=== PATIENT | female | born 1945 | race Caucasian/White ===

== ENCOUNTER 2017-01-18 07:03 | Day surgery (SDC) | payer OTHER ==
[2017-01-18] MEDS ORDERED: LIDOCAINE 1% 5 ML SDV ONE (07:47)
[2017-01-18] MEDS ORDERED: fentaNYL 100 MCG/2 ML INJ ONE (08:00)
[2017-01-18] MEDS ORDERED: PROPOFOL 200 MG/20 ML VIAL ONE (08:00)
[2017-01-18] MEDS ORDERED: CEFAZOLIN 2 GM/DEXTROSE/100 ML BAG IV ONE (08:14)
[2017-01-18] MEDS ORDERED: ceFAZolin 2 GM/DEXTROSE 100 ML IV ONE (08:30)
[2017-01-18] MEDS ORDERED: MIDAZOLAM 2 MG/2 ML VIAL ONE (08:35)
[2017-01-18] MEDS ORDERED: LIDO/BUPIVA/morphINE 15ML SYR IU ONE (09:00)
[2017-01-18] MEDS ORDERED: LIDO/BUPIVA/NS 60ML SYR IU ONE (09:00)
[2017-01-18] MEDS ORDERED: LIDO/BUPIVA 10ML SYR IU ONE (09:00)
[2017-01-18] MEDS ORDERED: ONDANSETRON 4 MG/2 ML VIAL ONE (09:13)
[2017-01-18] MEDS ORDERED: DEXAMETHASONE 4 MG/ML VIAL ONE (09:13)
--- NOTE | 2017-01-18 10:06 | GOP ---
DATE OF OPERATION: 01/18/2017 SURGEON: Joe Borden MD CONSTRUCTION DRIVER: Dyan Roman ANESTHESIA: General. PREOPERATIVE DIAGNOSIS: Left knee medial meniscal tear and medial compartment osteoarthritis. POSTOPERATIVE DIAGNOSIS: Left knee medial meniscal tear and medial compartment osteoarthritis. PROCEDURE PERFORMED: Arthroscopic partial medial meniscectomy and debridement of the medial condyle and plateau, CPT code 48342. FINDINGS: 1. Normal patella. 2. Normal trochlea. 3. Medial femoral condyle with extensive grade 4 changes on the far medial aspect of the medial condyle. 4. Grade 4 changes over the medial half of the medial tibial plateau. 5. A complex tear of the posterior medial meniscus. 6. Intact ACL. 7. Normal lateral femoral condyle. 8. Normal lateral tibial plateau. 9. Normal lateral meniscus. PATIENT POSITION: Supine. TOURNIQUET TIME: 0 minutes. INDICATIONS: Patient is a 71-year-old with persistent medial joint pain. Imaging and evaluation were consistent with a medial meniscal tear as well as medial compartment cartilage wear. The patient had options discussed. She desired to go ahead with an arthroscopy, arthroscopic debridement, understanding the potential that she may not get better, she may still have pain due to arthritis. Nevertheless, she desired to go ahead with the arthroscopy. She also understood the potential risks and benefits, including but not limited to, bleeding, infection, persistent pain, stiffness, and anesthetic risks. DESCRIPTION OF PROCEDURE: The patient was taken to the operating room. After undergoing successful general anesthesia, the left lower extremity was prepped and draped in the usual sterile manner. Anatomic landmarks were identified. The anterolateral and anteromedial portal sites were injected with 0.25% Marcaine and 1% lidocaine. The knee was injected with the same. Anterolateral portal was made. The arthroscope placed in the joint. With the arthroscope in the joint, anteromedial portal was made. The probe was placed and the findings are described above. The degenerative changes were extensive. There were some loose cartilage edges that were debrided. The meniscus tear was complex in nature, and this was debrided back to stable base, although the meniscus was degenerative at its base. Following the debridement of the meniscus, debridement of the joint, the knee was then thoroughly irrigated and small debris was flushed out. Portal sites closed using 3-0 nylon suture. The knee was injected with 0.25%, 1% Marcaine and 5 mg of Duramorph. The patient had a sterile dressing. The patient had a compressive dressing. Patient was awakened and taken to recovery room in stable condition. Sponge, instrument and needle counts were correct. PLAN: The patient will undergo physical therapy with emphasis on range of motion and strengthening. Will be a candidate for viscosupplementation or platelet rich plasma in the future. Also, a candidate for unicompartmental knee. Also, car unloader helper brace. /[id number]/MODL MTDD
== END 2017-01-18 11:05 | disposition home or self-care (01) ==
LOC: FSGY 07:03
PROVIDERS: ATTEND Orthopaedic Surgery Sports Medicine
PROC: 0SBD4ZZ Excision of Left Knee Joint, Percutaneous Endoscopic Approach (ICD-10-PCS; principal; 2017-01-18 08:30)
DX: M23.222 Derangement of posterior horn of medial meniscus due to old tear or injury, left knee (principal); M17.12 Unilateral primary osteoarthritis, left knee
CPT/HCPCS: J0171; J0690; J1100; J2250; J2274; J2405; J2704; J3010

== ENCOUNTER → 2017-06-20 | Outpatient (CLI) | payer OTHER | LOC: FIMAGING 08:15 | PROVIDERS: ATTEND Internal Medicine | DX: R19.00 Intra-abdominal and pelvic swelling, mass and lump, unspecified site (principal) ==

== ENCOUNTER → 2017-09-05 | Outpatient (CLI) | payer OTHER | LOC: BMCIMAGING 15:16 | PROVIDERS: ATTEND Internal Medicine | DX: Z12.31 Encounter for screening mammogram for malignant neoplasm of breast (principal) | CPT/HCPCS: G0202 ==

== ENCOUNTER → 2017-09-27 | Outpatient (CLI) | payer OTHER | LOC: BMCIMAGING 13:48 | PROVIDERS: ATTEND Podiatrist Foot & Ankle Surgery | DX: Z13.828 Encounter for screening for other musculoskeletal disorder (principal); M20.41 Other hammer toe(s) (acquired), right foot; M20.42 Other hammer toe(s) (acquired), left foot; M77.32 Calcaneal spur, left foot; M77.31 Calcaneal spur, right foot ==

== ENCOUNTER → 2018-08-28 | Outpatient (CLI) | payer OTHER | LOC: FIMAGING 15:47 | PROVIDERS: ATTEND Orthopaedic Surgery | DX: Z01.818 Encounter for other preprocedural examination (principal); M17.12 Unilateral primary osteoarthritis, left knee ==

== ENCOUNTER → 2018-09-09 | Outpatient (CLI) | payer OTHER | LOC: BMCIMAGING 13:21 | PROVIDERS: ATTEND Internal Medicine | DX: Z12.31 Encounter for screening mammogram for malignant neoplasm of breast (principal) ==

== ENCOUNTER 2018-09-20 06:04 | Observation (INO) | payer OTHER ==
[~2018-09-20 06:04] MED LIST: ROPIVACAINE 0.2% 80 MG, EPINEPHrine 0.2 MG, KETOROLAC TROMETHAMINE 30 MG in SYRINGE 0 ML IU ONE; TRANEXAMIC ACID 3,000 MG in NS (SYRINGE) 50 ML IRR ONE
--- NOTE | 2018-09-20 06:12 | PDHPUP ---
History & Physical Update H&P update statement: This history and physical update is based on an assessment of the patient which was completed after admission or registration (within 24 hours), but prior to the surgery/procedure. H&P update: H&P reviewed & patient examined, no change in patient's condition since H&P completed
[2018-09-20] MEDS ORDERED: ceFAZolin 2 GM/DEXTROSE 100 ML IV ONE (06:18)
[2018-09-20] MEDS ORDERED: DEXAMETHASONE 4 MG/ML VIAL IVP ONE (06:18)
[2018-09-20] MEDS ORDERED: ACETAMINOPHEN 325 MG TAB PO ONE (06:18)
[2018-09-20] MEDS ORDERED: FAMOTIDINE 20 MG TAB PO ONE (06:18)
[2018-09-20] MEDS ORDERED: LIDOCAINE 1% 2 ML INJ ID PRN (06:19)
[2018-09-20] MEDS ORDERED: LR 1,000 ML IV ONE (06:19)
[2018-09-20] MEDS ORDERED: VANCOMYCIN 1 GM VIAL ONE (06:36)
[2018-09-20] MEDS ORDERED: MIDAZOLAM 2 MG/2 ML VIAL ONE (07:02)
[2018-09-20] MEDS ORDERED: PROPOFOL/EMULSION 500 MG/50 ML BOTTLE IV ONE (07:02)
[2018-09-20] MEDS ORDERED: BUPIVACAINE/DEXTROSE 7.5MG/ML 2 ML SPINAL AMP SP ONE (07:02)
[2018-09-20] MEDS ORDERED: ROPIVACAINE HCL 150 MG/30 ML INJ ONE (07:33)
[2018-09-20] MEDS ORDERED: ALBUTEROL 3 ML DEYVIAL IH PRN (07:34)
[2018-09-20] MEDS ORDERED: NALOXONE HCL 0.4 MG/ML INJ IVP PRN (07:34)
[2018-09-20] MEDS ORDERED: LR 500 ML IV PRN (07:34)
[2018-09-20] MEDS ORDERED: fentaNYL 100 MCG/2 ML INJ IVP PRN (07:34)
[2018-09-20] MEDS ORDERED: ONDANSETRON 4 MG/2 ML VIAL IVP PRN ×2 (07:34→08:18)
[2018-09-20] MEDS ORDERED: DEXAMETHASONE 4 MG/ML VIAL IVP PRN (07:34)
--- NOTE | 2018-09-20 07:35 | PDANEPAE ---
ANE Past Medical History - Cardiovascular History Hx Hypertension: No Hx Arrhythmias: No Hx Chest Pain: No Hx Coronary Artery / Peripheral Vascular Disease: Yes Hx CHF / Valvular Disease: No Hx Palpitations: No Cardiovascular History Comment: MVP- no problems - Pulmonary History Hx COPD: No Hx Asthma/Reactive Airway Disease: No Hx Recent Upper Respiratory Infection: No Hx Oxygen in Use at Home: No Hx Sleep Apnea: No Sleep Apnea Screening Result - Last Documented: Negative - Neurologic History Hx Cerebrovascular Accident: No Hx Seizures: No Hx Dementia: No - Endocrine History Hx Diabetes: No - Renal History Hx Renal Disorders: No - Liver History Hx Hepatic Disorders: No - Neurological & Psychiatric Hx Hx Neurological and Psychiatric Disorders: Yes Neurological / Psychiatric History Comment: depression - Cancer History Hx Cancer: No - Congenital Disorder History Hx Congenital Disorders: No - GI History Hx Gastrointestinal Disorders: No - Other Health History Other Health History: L knee meniscal tear - Chronic Pain History Chronic Pain: No - Surgical History Prior Surgeries: R shoulder scope-rotator cuff 12-23-15,TONSILLECTOMY. D & C ANE Review of Systems Review of Systems: - Exercise capacity METS (RN): 4 METS ANE Patient History - Allergies Allergies/Adverse Reactions: No Known Allergies Allergy (Verified 01/03/17 10:47) - Home Medications Home Medications: Ascorbic Acid [Vitamin C 500 mg (*)] 500 mg PO DAILY 09/05/18 [Last Taken Unknown] Aspirin [Aspirin 81mg (*)] 81 mg PO DAILY 09/05/18 [Last Taken Unknown] Cholecalciferol Vit D3 [Vitamin D3 (*)] 1,000 units PO DAILY 09/05/18 [Last Taken Unknown] Escitalopram Oxalate [Lexapro] 20 mg PO DAILY 09/05/18 [Last Taken Unknown] Herbals/Supplements -Info Only 1 ea PO DAILY 09/05/18 [Last Taken Unknown] Multivitamins [Multivitamin (*)] 1 each PO DAILY 09/05/18 [Last Taken Unknown] [place]-3 Fatty Acids [Fish Oil 1000 mg (*)] 1,000 mg PO DAILY 09/05/18 [Last Taken Unknown] - NPO status NPO Since - Liquids (Date): 09/20/18 NPO Since - Liquids (Time): 06:30 NPO Since - Solids (Date): 09/19/18 - Smoking Hx Smoking Status: Never smoked - Family Anes Hx Family Hx Anesthesia Complications: NEG ANE Labs/Vital Signs - Vital Signs Blood Pressure: 106/61 Heart Rate: 64 Respiratory Rate: 16 O2 Sat (%): 97 Height: 165.1 cm Weight: 52.617 kg ANE Physical Exam - Airway Neck exam: FROM Mallampati Score: Class 1 Mouth exam: normal dental/mouth exam - Pulmonary Pulmonary: no respiratory distress, no rales or rhonchi, clear to auscultation - Cardiovascular Cardiovascular: regular rate and rhythym, no murmur, rub, or gallop - ASA Status ASA Status: II ANE Anesthesia Plan Anesthesia Plan: spinal Regional Anesthesia: single shot NB, adductor canal FNB
[2018-09-20] MEDS ORDERED: PROMETHAZINE HCL 25 MG/ML INJ IVP PRN (08:18)
[2018-09-20] MEDS ORDERED: LACTULOSE 20 GM/30 ML UDCUP PO PRN (08:18)
[2018-09-20] MEDS ORDERED: DIPHENOXYLATE/ATROPINE LOMOTIL 1 TAB PO PRN (08:18)
[2018-09-20] MEDS ORDERED: METOCLOPRAMIDE 10 MG/2 ML VIAL IVP PRN (08:18)
[2018-09-20] MEDS ORDERED: TEMAZEPAM 15 MG CAP PO PRN (08:18)
[2018-09-20] MEDS ORDERED: CYCLOBENZAPRINE 10 MG TAB PO PRN (08:18)
[2018-09-20] MEDS ORDERED: ONDANSETRON DISINTEGRATING 4 MG TAB PO PRN (08:18)
[2018-09-20] MEDS ORDERED: PROMETHAZINE HCL 25 MG SUPPR PR PRN (08:18)
[2018-09-20] MEDS ORDERED: BISACODYL 10 MG SUPP PR PRN (08:18)
[2018-09-20] MEDS ORDERED: oxyCODONE IR 5 MG TAB PO PRN (08:18)
[2018-09-20] MEDS ORDERED: diphenhydrAMINE 25 MG CAP PO PRN (08:18)
[2018-09-20] MEDS ORDERED: POLYETHYLENE GLYCOL 3350 17 GM PKT PO PRN (08:18)
[2018-09-20] MEDS ORDERED: MAGNESIUM HYDROXIDE 30 ML UDCUP PO PRN (08:18)
--- NOTE | 2018-09-20 08:18 | POSTOPPROG ---
Post Op Note Date of Operation: 09/20/18 Surgeon: Lalito Jones Technicians And Trades Workers: edwin jones Anesthesiologist: dr. cantu Anesthesia: Spinal, Other (Specify) (adductor canal block) Pre-op Diagnosis: left knee OA Post-op Diagnosis: same Indication: left knee pain Procedure: left medial knee partial knee arthroplasty robot assisted Findings: medial knee severe OA Inf/Abcess present in the surg proc area at time of surgery?: No EBL: 50-100
[2018-09-20] MEDS ORDERED: LR 1,000 ML IV SCH (08:30)
[2018-09-20] MEDS ORDERED: SENNOSIDES/DOCUSATE SODIUM TAB PO SCH (09:00)
--- NOTE | 2018-09-20 09:00 | POSTANESTH ---
Post Anesthetic Evaluation Cardiovascular Status: Normal, Stable, Similar to Pre-Op Cond Respiratory Status: Normal, Stable, Similar to Pre-op Cond. Level of Consciousness/Mental Status: Can Participate in Eval Pain Control: Adequate, Prn Tx Ordered Nausea/Vomiting Control: Adequate, Prn Tx Ordered Complications Possibly Related to Anesthesia: None Noted Notes: Adductor canal block done in pacu for POPC
[2018-09-20] MEDS ORDERED: ACETAMINOPHEN 325 MG TAB PO SCH (12:00)
[2018-09-20] MEDS ORDERED: ESCITALOPRAM OXALATE 10 MG TAB PO SCH (13:15)
[2018-09-20] MEDS ORDERED: ceFAZolin 2 GM/DEXTROSE 100 ML IV SCH (14:00)
[2018-09-20 14:09] VITALS: BP 97/47
[2018-09-20] MEDS ORDERED: FAMOTIDINE 20 MG TAB PO SCH (21:00)
[2018-09-20] MEDS ORDERED: ASPIRIN 81 MG CHEWABLE TAB PO SCH (21:00)
--- NOTE | 2018-09-21 12:09 | GOP ---
DATE OF OPERATION: 09/20/2018 SURGEON: Luc Castañeda MD CAMP HOUSEKEEPER: Iliana Castañeda, MERVIN ANESTHESIA: Spinal. PREOPERATIVE DIAGNOSIS: Left knee osteoarthritis. POSTOPERATIVE DIAGNOSIS: Left knee osteoarthritis. PROCEDURE PERFORMED:. Left medial compartment partial knee replacement with computer navigation, robotic assist. FINDINGS: ESTIMATED BLOOD LOSS: 30 cc. INDICATIONS: This is a 73-year-old female with progressive pain of the left knee unresponsive to conservative care. Risks and benefits of surgical intervention were explained in detail. DESCRIPTION OF PROCEDURE: The patient was brought to the operating room and placed on the table in supine position. Spinal anesthesia was induced without difficulty. A pneumatic tourniquet was applied about the left proximal thigh and the leg was prepped and draped in sterile fashion. Attention was turned first to the distal aspect of the left femur. At 3 cm proximal to the lateral rise of the femur, 2 percutaneous half pins were placed for fixation of the femoral array. In a similar fashion, 2 pins were placed anterolateral on the tibia for fixation of the tibial array. External land marking and registration of the hip center was performed without difficulty. After exsanguination by elevation, the tourniquet was inflated to 250 mmHg. Incision was made from the tibial tuberosity to the _ superior pole of the patella, dissection was carried out through the subcutaneous tissue to the deep fascia using Bovie electrocautery for hemostasis. Medial parapatellar arthrotomy was carried out to the superior pole of the patella. The medial collateral ligament was elevated and the infrapatellar fat pad was resected. Internal femoral and tibial registration was carried out without difficulty and the femoral and tibial checkpoints were placed and verified for accuracy. Attention was turned to the femur. The foot print for the size 2 femoral component was cut with the 6 mm bur using the [employer] robotic system and verified for accuracy against the CT based plan. The hole was cut for the femoral post. In a similar fashion, the 6 mm bur was used to cut the foot print for the size 2 tibial component using the Structure Vision system and verified for accuracy against the CT based plan. Attention was turned to the posterior aspect of the knee and remnants of the medial meniscus were excised. The posterior capsule was injected with ropivacaine, epinephrine and Toradol. Trial reduction was carried out and there was excellent range of motion, alignment and stability using the size 2 femoral component and the size 2 tibial component. A 2 x 8 mm poly_. All trials were then removed. The joint was thoroughly irrigated and carefully dried. One package of cement and 1 gram of vancomycin were mixed in the vacuum mixer and placed on the fixation surfaces of all components. The components were implanted and all excess cement was thoroughly removed. Implant placement was verified against the CT view plan and found to be excellent. The tourniquet was deflated and all bleeders were coagulated. The wound was thoroughly irrigated and closed using interrupted sutures of 2-0 Vicryl for the joint capsule. The subcu was closed with 3-0 Vicryl and the skin with 4-0 Monocryl. Dermabond and Steri-Strips were applied, followed by a compressive dressing. The patient was then moved from the operating room to the recovery room in good condition, having tolerated the procedure well. PATHOLOGY: Severe medial compartment osteoarthritis CASE CLASSIFICATION: Clean. /[id number]/MODL MTDD
== END 2018-09-20 15:24 | disposition home or self-care (01) ==
LOC: FSGY 06:04 → EDSTATUS 07:15 → F3N 08:18
PROVIDERS: ADMIT Orthopaedic Surgery; ATTEND Orthopaedic Surgery
PROC: 0SRD0JZ Replacement of Left Knee Joint with Synthetic Substitute, Open Approach (ICD-10-PCS; principal; 2018-09-20 07:15)
DX: M17.12 Unilateral primary osteoarthritis, left knee (principal)
CPT/HCPCS: 27446; 73560; 97161; C1713; C1776; G0378; G8978; G8979; G8980; J0171; J0690; J1100; J1885; J2250; J2704; J2795; J3370

== ENCOUNTER 2019-02-14 15:08 | Observation (INO) | payer OTHER ==
--- NOTE | 2019-02-14 15:24 | EDPHY ---
H & P Stated Complaint: Hip Sx yest, SOB with low sats today. No pain. Time Seen by Provider: 02/14/19 15:24 - Personal History Current Tetanus/Diphtheria Vaccine: Yes - Medical/Surgical History Hx Asthma: No Hx Chronic Respiratory Disease: No Hx Diabetes: No Hx Cardiac Disease: No Hx Renal Disease: No Hx Cirrhosis: No Hx Alcoholism: No Hx HIV/AIDS: No Hx Splenectomy or Spleen Trauma: No Other PMH: L hip Sx, knee repl Sx, - Social History Smoking Status: Never smoked Constitutional: Initial Vital Signs Temperature (C) 37.4 C 02/14/19 15:14 Heart Rate 107 H 02/14/19 15:14 Respiratory Rate 18 02/14/19 15:14 Blood Pressure 104/56 L 02/14/19 15:14 O2 Sat (%) 81 L 02/14/19 15:14 O2 Delivery Mode Room Air O2 (L/minute) 2 Allergies/Adverse Reactions: No Known Allergies Allergy (Verified 02/14/19 15:14) Home Medications: Medication Instructions Recorded Ascorbic Acid [Vitamin C 500 mg 500 mg PO DAILY 09/05/18 (*)] Cholecalciferol Vit D3 [Vitamin D3 1,000 units PO DAILY 09/05/18 (*)] Escitalopram Oxalate [Lexapro] 20 mg PO DAILY 09/05/18 Herbals/Supplements -Info Only 1 ea PO DAILY 09/05/18 Multivitamins [Multivitamin (*)] 1 each PO DAILY 09/05/18 [place]-3 Fatty Acids [Fish Oil 1000 1,000 mg PO DAILY 09/05/18 mg (*)] Acetaminophen [Tylenol 325mg (*)] 650 mg PO Q6HRS tab 09/20/18 Aspirin [Aspirin 81mg (*)] 81 mg PO BID tab.chew 09/20/18 Famotidine [Pepcid 20 MG (*)] 20 mg PO BID tab 09/20/18 Polyethylene Glycol 3350 [Miralax 17 gm PO DAILY PRN pkt 09/20/18 17 gm (*)] Sennosides/Docusate Sodium 1 - 2 tab PO BID tab 09/20/18 [Senokot-S] celeCOXIB [Celebrex (*)] 200 mg PO DAILY cap 09/20/18 oxyCODONE IR [Oxycodone Ir (*)] 5 - 10 mg PO Q3HRS PRN tab 09/20/18 Medical Decision Making - Diagnostics Imaging Results: Imaging Impressions Chest/Thorax CTA 02/14/19 15:30 Impression: 1. No evidence for pulmonary embolic disease. 2. Small left pleural effusion with mild bilateral lower lobe atelectasis. 3. Peribronchial thickening which can be seen in small airways reactive disease including viral bronchitis or asthma. 4. Age-indeterminate T9 vertebral body compression fracture. No prior studies available for comparison. With clinical concern for acute fracture, correlation with point tenderness and MRI is recommended as clinically warranted. Pacheco Clemons was notified of these findings by telephone at 5:03 PM on 02/14/2019 Imaging: Discussed imaging studies w/ lumber racker Radiologist, I viewed and interpreted images myself ED Course/Re-evaluation: CHIEF COMPLAINT: Low O2Sats s/p hip surgery HISTORY OF PRESENT ILLNESS: The patient is a 73 y/o female complaining of low O2sats in the 70's s/p emergency hip surgery 2 days ago. The patient was seen at [facility] secondary to falling while skiing and breaking her hip. She denies any other injury besides the hip fracture. She had a total hip replacement, but was discharged home yesterday without difficulty. During her admission she did have low O2Sats, but the hospital felt it was safe for her to return home. Today she noticed that the O2Sats remained low and she became concerned. She has never had low O2Sats in the past. No fever, headache, body aches, lightheadedness, chest pain, heart palpitations, cough, abdominal pain, urinary or bowel complaints, numbness, paresthesias. REVIEW OF SYSTEMS: A comprehensive 10 system review of systems is otherwise negative aside from elements mentioned in the history of present illness and medical decision making. PHYSICAL EXAM: HR, BP, O2 Sat, RR. Temp noted General Appearance: Alert, well hydrated, appropriate, and non-toxic appearing. Head: Atraumatic without scalp tenderness or obvious injury Eyes: Pupils equal, round, reactive to light and accommodation, EOMI, no trauma , no injection. Ears: Clear bilaterally, no perforation, normal landmarks Nose: Atraumatic, no rhinorrhea, clear. Throat: There is no erythema or exudates, no lesions, normal tonsils, mucus membranes moist. Neck: Supple, 2+ carotid upstroke, nontender, no lymphadenopathy. Respiratory: No retractions, no distress, no wheezes, and no accessory muscle use. Lungs are clear to auscultation bilaterally. Cardiovascular: Tachycardic, no murmurs, rubs, or gallops. Bilateral carotid, radial, dorsalis pedis, and posterior tibial pulses intact. Good capillary refill all extremities. Gastrointestinal: Abdomen is soft, nontender, non-distended, no masses, no rebound, no guarding, no peritoneal signs. Musculoskeletal: Normal active ROM of all extremities, atraumatic. Neurological: Alert, appropriate, and interactive. The patient has normal DTRs and non-focal cranial nerves, motor, sensory, and cerebellar exam. Skin: No rashes, good turgor, no nodules on palpation. Past medical history: Denies Past surgical history: Hip surgery, knee surgery Family history: Denies Social history: at bedside, retired, lives in [place] DIAGNOSTICS/PROCEDURES/CRITICAL CARE TIME: Chest CTA: Atelectasis present. No sign of PE. EKG: The 12 lead EKG was interpreted by myself as sinus rhythm with a rate of 97. See hard copy and/or "tracemaster" electronic copy for interpretation. DIFFERENTIAL DIAGNOSIS: The differential diagnosis for the patient's shortness of breath and hypoxemia included but was not limited to congest heart failure due to perioperative fluid overload, pneumonia, myocardial infarction, acute mountain sickness, high altitude pulmonary edema, congestive heart failure, and pulmonary embolus. MEDICAL DECISION MAKING: The patient is a 73 y/o female presenting with low O2sats in the 70's s/p emergency hip surgery 2 days ago. On exam she is tachycardic with O2Sats of 80% on room air. We have administered supplemental oxygen. Labs, EKG and chest CTA ordered; DuoNeb administered. Patient is not a candidate for a d-dimer as she just had surgery 2 days ago and would likely have an elevated d-dimer due to the surgery. Patient is comfortable with plan for chest CTA. 1610: I interpreted patient's EKG as sinus rhythm with a rate of 97. Labs and chest CTA still pending. 1643: Patient has a low hematocrit and elevated BNP; chest CTA still pending. 1703: I spoke with Dr. Castelan, radiologist, regarding patient's chest CTA. There is no sign of PE but there is atelectasis. Patient's hypoxemia is most likely due to congest heart failure due to perioperative fluid overload. 20mg IV Lasix administered. 1713: Reassessed patient and discussed laboratory and imaging findings. I have discussed plan for admission, which she is comfortable with. 1717: I consulted with the hospitalist service, Dr. Smiley accepts admission of this patient for her hypoxemia. - Data Points Laboratory Results: Laboratory Results 02/14/19 15:50 02/14/19 15:50 02/14/19 02/14/19 02/14/19 15:59 15:51 15:50 WBC RBC Hgb POC Hgb 8.8 gm/dL L gm/dL (12.6-16.3) Hct POC Hct 26 % L % (38-47) MCV MCH MCHC RDW Plt Count MPV Neut % (Auto) Lymph % (Auto) [place] % (Auto) Eos % (Auto) Baso % (Auto) Nucleat RBC Rel Count Absolute Neuts (auto) Absolute Lymphs (auto) Absolute Monos (auto) Absolute Eos (auto) Absolute Basos (auto) Absolute Nucleated RBC Immature Gran % Immature Gran # POC Sodium 143 mEq/L mEq/L (135-145) Sodium 133 mEq/L L mEq/L (135-145) POC Potassium 3.9 mEq/L mEq/L (3.3-5.0) Potassium 3.9 mEq/L mEq/L (3.5-5.2) POC Chloride 101 mEq/L mEq/L (97-110) Chloride 104 mEq/L mEq/L (97-110) Carbon Dioxide 24 mEq/l mEq/l (22-31) POC Total CO2 23 mEq/L mEq/L (22-31) Anion Gap 5 mEq/L L mEq/L (6-14) POC BUN 19 mg/dL mg/dL (7-23) BUN 21 mg/dL mg/dL (7-23) Creatinine 0.8 mg/dL mg/dL (0.6-1.0) POC Creatinine 0.8 mg/dL mg/dL (0.6-1.0) Estimated GFR > 60 Glucose 105 mg/dL H mg/dL (70-100) POC Glucose 111 mg/dL H mg/dL (70-100) Calcium 8.4 mg/dL L mg/dL (8.5-10.4) POC Troponin I 0.02 ng/mL ng/mL (0.00-0.08) NT-Pro-B Natriuret Pep 1660 pg/mL H pg/mL (0-125) 02/14/19 15:50 WBC 7.30 10^3/uL 10^3/uL (3.80-9.50) RBC 2.79 10^6/uL L 10^6/uL (4.18-5.33) Hgb 8.3 g/dL L g/dL (12.6-16.3) POC Hgb Hct 26.4 % L % (38.0-47.0) POC Hct MCV 94.6 fL fL (81.5-99.8) MCH 29.7 pg pg (27.9-34.1) MCHC 31.4 g/dL L g/dL (32.4-36.7) RDW 14.3 % % (11.5-15.2) Plt Count 138 10^3/uL L 10^3/uL (150-400) MPV 10.8 fL fL (8.7-11.7) Neut % (Auto) 65.9 % % (39.3-74.2) Lymph % (Auto) 16.3 % % (15.0-45.0) [place] % (Auto) 13.7 % H % (4.5-13.0) Eos % (Auto) 3.3 % % (0.6-7.6) Baso % (Auto) 0.4 % % (0.3-1.7) Nucleat RBC Rel Count 0.0 % % (0.0-0.2) Absolute Neuts (auto) 4.81 10^3/uL 10^3/uL (1.70-6.50) Absolute Lymphs (auto) 1.19 10^3/uL 10^3/uL (1.00-3.00) Absolute Monos (auto) 1.00 10^3/uL H 10^3/uL (0.30-0.80) Absolute Eos (auto) 0.24 10^3/uL 10^3/uL (0.03-0.40) Absolute Basos (auto) 0.03 10^3/uL 10^3/uL (0.02-0.10) Absolute Nucleated RBC 0.00 10^3/uL 10^3/uL (0-0.01) Immature Gran % 0.4 % % (0.0-1.1) Immature Gran # 0.03 10^3/uL 10^3/uL (0.00-0.10) POC Sodium Sodium POC Potassium Potassium POC Chloride Chloride Carbon Dioxide POC Total CO2 Anion Gap POC BUN BUN Creatinine POC Creatinine Estimated GFR Glucose POC Glucose Calcium POC Troponin I NT-Pro-B Natriuret Pep Medications Given: Discontinued Medications Albuterol/Ipratropium (Duoneb) 3 ml IH EDNOW ONE Stop: 02/14/19 15:31 Last Admin: 02/14/19 15:56 Dose: 3 ml Point of Care Test Results: Chemistry 02/14/19 02/14/19 15:59 15:51 POC Sodium 143 mEq/L mEq/L (135-145) POC Potassium 3.9 mEq/L mEq/L (3.3-5.0) POC Chloride 101 mEq/L mEq/L (97-110) POC Total CO2 23 mEq/L mEq/L (22-31) POC BUN 19 mg/dL mg/dL (7-23) POC Creatinine 0.8 mg/dL mg/dL (0.6-1.0) POC Glucose 111 mg/dL H mg/dL (70-100) POC Troponin I 0.02 ng/mL ng/mL (0.00-0.08) ISTAT H&H 02/14/19 15:59 POC Hgb 8.8 gm/dL L gm/dL (12.6-16.3) POC Hct 26 % L % (38-47) Departure - Departure Disposition: [facility] Inpatient Acute Clinical Impression: Hypoxemia CHF (congestive heart failure) Qualifiers: Heart failure type: unspecified Heart failure chronicity: acute Qualified Code( s): I50.9 - Heart failure, unspecified Condition: Fair Referrals: Sergio Avelar MD [Primary Care Provider] - As per Instructions Report Scribed for: Pacheco Clemons Report Scribed by: Kelly Doan Date of Report: 02/14/19 Time of Report: 15:26
[2019-02-14] MEDS ORDERED: IPRATROPIUM/ALBUTEROL 3 ML DEYVIAL IH ONE (15:30)
[2019-02-14] MEDS ORDERED: IOPAMIDOL (ISOVUE-370) 150 ML BTL IV ONE (16:29)
[2019-02-14 16:38] LABS: PLATELET COUNT 138 10^3/uL (150-400)
[2019-02-14] MEDS ORDERED: FUROSEMIDE 20 MG/2 ML VIAL IVP ONE (17:11)
[2019-02-14] MEDS ORDERED: ALBUTEROL 3 ML DEYVIAL IH PRN (18:02)
[2019-02-14] MEDS ORDERED: ONDANSETRON DISINTEGRATING 4 MG TAB PO PRN (18:02)
[2019-02-14] MEDS ORDERED: ACETAMINOPHEN 325 MG TAB PO PRN (18:02)
[2019-02-14] MEDS ORDERED: ONDANSETRON 4 MG/2 ML VIAL IVP PRN (18:02)
[2019-02-14] MEDS ORDERED: METHOCARBAMOL 750 MG TAB PO PRN (18:05)
--- NOTE | 2019-02-14 18:23 | PDGENHP ---
<Nidhi Villegas - Last Filed: 02/14/19 18:38> History and Physical - Chief Complaint Hypoxia - History of Present Illness 73 y/o relatively healthy female presents w/hypoxia after d/c from [facility] yesterday. On Sunday, she fell while waiting in line at the ski [place] and ended up fracturing her left hip. She went to [facility] where she had a total hip arthroplasty on Sunday and was then discharged yesterday. She reports today she didn't feel right w/mild nausea and checked her oxygen w/her home finger pulse ox and she was saturating in the 70s. Denies SOB, vomiting, lightheadedness, CP, palpitations. Mild to moderate pain to left hip as to be expected s/p. Presenting to the ER, room air 81%, now on 2L NC saturating at 94 %. She was also tachycardic at 107, elevated BNP 1660, chest CTA performed revealed no pulmonary embolism but evidence of small left pleural effusion w/ mild bilateral lower lobe atelectasis. She is being admitted for treatment and monitoring. History Information - Allergies/Home Medication List Allergies/Adverse Reactions: No Known Allergies Allergy (Verified 02/14/19 15:14) Home Medications: Ascorbic Acid [Vitamin C 500 mg (*)] 500 mg PO DAILY 09/05/18 [Last Taken Unknown] Cholecalciferol Vit D3 [Vitamin D3 (*)] 1,000 units PO DAILY 09/05/18 [Last Taken Unknown] Escitalopram Oxalate [Lexapro] 20 mg PO DAILY 09/05/18 [Last Taken 02/14/19] Herbals/Supplements -Info Only 1 ea PO DAILY 09/05/18 [Last Taken Unknown] [place]-3 Fatty Acids [Fish Oil 1000 mg (*)] 1,000 mg PO DAILY 09/05/18 [Last Taken Unknown] Aspirin [Aspirin 325 mg (*)] 325 mg PO BID 02/14/19 [Last Taken Unknown] Docusate Sodium [Colace 100 MG (*)] 100 mg PO BID 02/14/19 [Last Taken Unknown] Methocarbamol [Robaxin 750 mg (*)] 750 mg PO Q8H PRN 02/14/19 [Last Taken Unknown] oxyCODONE IR [Oxycodone Ir (*)] 5 - 10 mg PO Q4H PRN 02/14/19 [Last Taken Unknown] I have personally reviewed and updated: family history, medical history, social history, surgical history Past Medical History: Depression - Surgical History Additional surgical history: Left GILES (2 days ago). Left partial knee replacement (08/2018). Tonsillectomy - Family History Positive for: non-pertinent - Social History Smoking Status: Never smoked Alcohol Use: Rarely Drug Use: None Additional social history: . Very active. Review of Systems Review of Systems: ROS: 10pt was reviewed & negative except for what was stated in HPI & below Physical Exam Physical Exam: Lab data and imaging were reviewed. Temp Pulse Resp BP Pulse Ox 36.7 C 87 18 112/67 95 02/14/19 17:53 02/14/19 17:53 02/14/19 17:53 02/14/19 17:53 02/14/19 17:53 O2 (L/minute) 2 Constitutional: no apparent distress, appears nourished, not in pain Eyes: PERRL, anicteric sclera, EOMI Ears, Nose, Mouth, Throat: moist mucous membranes, hearing normal, ears appear normal, no oral mucosal ulcers Cardiovascular: regular rate and rhythym, tachycardia Peripheral Pulses: 2+: dorsalis-pedis (R) (Radial 2+), dorsalis-pedis (L) ( Radial 2+) Respiratory: reduced air movement, expiratory wheeze Gastrointestinal: normoactive bowel sounds, soft, non-tender abdomen, no palpable masses Genitourinary: no bladder fullness, no bladder tenderness Skin: warm, normal color, no rashes or abrasions, no fluctuance, no induration, No mottled Musculoskeletal: pain with ROM (LLE - surgical pain. Dressing C/D/I. minimal serous shadowing. Bulk gauze.) Neurologic: AAOx3, sensation intact bilaterally, CN II-XII Intact Psychiatric: interacting appropriately, not anxious, not encephalopathic, thought process linear Lymph, Heme, Immunologic: no cervical LAD, no supraclavicular LAD Lab Data & Imaging Review 02/14/19 15:50 02/14/19 15:50 WBC 7.30 10^3/uL (3.80-9.50) 02/14/19 15:50 RBC 2.79 10^6/uL (4.18-5.33) L 02/14/19 15:50 Hgb 8.3 g/dL (12.6-16.3) L 02/14/19 15:50 POC Hgb 8.8 gm/dL (12.6-16.3) L 02/14/19 15:59 Hct 26.4 % (38.0-47.0) L 02/14/19 15:50 POC Hct 26 % (38-47) L 02/14/19 15:59 MCV 94.6 fL (81.5-99.8) 02/14/19 15:50 MCH 29.7 pg (27.9-34.1) 02/14/19 15:50 MCHC 31.4 g/dL (32.4-36.7) L 02/14/19 15:50 RDW 14.3 % (11.5-15.2) 02/14/19 15:50 Plt Count 138 10^3/uL (150-400) L 02/14/19 15:50 MPV 10.8 fL (8.7-11.7) 02/14/19 15:50 Neut % (Auto) 65.9 % (39.3-74.2) 02/14/19 15:50 Lymph % (Auto) 16.3 % (15.0-45.0) 02/14/19 15:50 [place] % (Auto) 13.7 % (4.5-13.0) H 02/14/19 15:50 Eos % (Auto) 3.3 % (0.6-7.6) 02/14/19 15:50 Baso % (Auto) 0.4 % (0.3-1.7) 02/14/19 15:50 Nucleat RBC Rel Count 0.0 % (0.0-0.2) 02/14/19 15:50 Absolute Neuts (auto) 4.81 10^3/uL (1.70-6.50) 02/14/19 15:50 Absolute Lymphs (auto) 1.19 10^3/uL (1.00-3.00) 02/14/19 15:50 Absolute Monos (auto) 1.00 10^3/uL (0.30-0.80) H 02/14/19 15:50 Absolute Eos (auto) 0.24 10^3/uL (0.03-0.40) 02/14/19 15:50 Absolute Basos (auto) 0.03 10^3/uL (0.02-0.10) 02/14/19 15:50 Absolute Nucleated RBC 0.00 10^3/uL (0-0.01) 02/14/19 15:50 Immature Gran % 0.4 % (0.0-1.1) 02/14/19 15:50 Immature Gran # 0.03 10^3/uL (0.00-0.10) 02/14/19 15:50 POC Sodium 143 mEq/L (135-145) 02/14/19 15:59 Sodium 133 mEq/L (135-145) L 02/14/19 15:50 POC Potassium 3.9 mEq/L (3.3-5.0) 02/14/19 15:59 Potassium 3.9 mEq/L (3.5-5.2) 02/14/19 15:50 POC Chloride 101 mEq/L (97-110) 02/14/19 15:59 Chloride 104 mEq/L (97-110) 02/14/19 15:50 Carbon Dioxide 24 mEq/l (22-31) 02/14/19 15:50 POC Total CO2 23 mEq/L (22-31) 02/14/19 15:59 Anion Gap 5 mEq/L (6-14) L 02/14/19 15:50 POC BUN 19 mg/dL (7-23) 02/14/19 15:59 BUN 21 mg/dL (7-23) 02/14/19 15:50 Creatinine 0.8 mg/dL (0.6-1.0) 02/14/19 15:50 POC Creatinine 0.8 mg/dL (0.6-1.0) 02/14/19 15:59 Estimated GFR > 60 02/14/19 15:50 Glucose 105 mg/dL (70-100) H 02/14/19 15:50 POC Glucose 111 mg/dL (70-100) H 02/14/19 15:59 Calcium 8.4 mg/dL (8.5-10.4) L 02/14/19 15:50 POC Troponin I 0.02 ng/mL (0.00-0.08) 02/14/19 15:51 NT-Pro-B Natriuret Pep 1660 pg/mL (0-125) H 02/14/19 15:50 Assessment & Plan Plan: 73 y/o female w/ no pertinent PMH s/p L GILES presents w/hypoxia on RA. Asymptomatic; no SOB, COLMENARES, lightheadedness. She received duoneb and 20 mg IV of Lasix in ED. She is hemodynamically stable. Vitals are: BP 112/67, HR 87, resp 18, 36.7c, 95% 2L NC #Acute congestive heart failure: suspected jeanette-operative fluid overload as etiology as she does not have a cardiac hx. -Received 20 mg IV Lasix in ED; reassess status in AM for possible additional diuretics -Received duoneb tx in ED; albuterol tx PRN -CBC/BMP in AM #Acute hypoxic respiratory failure: see above for suspected cause -Incentive spirometry -OOB w/assistance TID -Room air challenge before d/c #S/p left total hip arthroplasty -Pain management PO PRN -Hip precautions -PT/OT to evaluate and treat -ASA BID as her blood thinner #Anemia: Potential component to her hypoxia but unlikely. EBL during surgery was ~150cc. 02/11, H/H 13.1/39.4. Today H/H 8.3/26.4. Considering her recent surgery, there is fluctuation of H/H but we will monitor it to ensure it does not continually decrease. No evidence of bleeding around the surgical area. No blood in urine or stool per pt. -Iron panel pending -Cycle H&H Q6H x 2 Diet: Regular Code: Full VTE ppx: SCDs, ASA BID Dispo: Admit to obs <Joe Smiley - Last Filed: 02/14/19 20:09> History and Physical - History of Present Illness Review of Systems Review of Systems: Physical Exam Physical Exam: Temp Pulse Resp BP Pulse Ox 37.7 C 88 20 108/57 L 93 02/14/19 18:38 02/14/19 18:38 02/14/19 18:38 02/14/19 18:38 02/14/19 18:38 O2 (L/minute) 2 Lab Data & Imaging Review 02/14/19 15:50 02/14/19 15:50 WBC 7.30 10^3/uL (3.80-9.50) 02/14/19 15:50 RBC 2.79 10^6/uL (4.18-5.33) L 02/14/19 15:50 Hgb 8.3 g/dL (12.6-16.3) L 02/14/19 15:50 POC Hgb 8.8 gm/dL (12.6-16.3) L 02/14/19 15:59 Hct 26.4 % (38.0-47.0) L 02/14/19 15:50 POC Hct 26 % (38-47) L 02/14/19 15:59 MCV 94.6 fL (81.5-99.8) 02/14/19 15:50 MCH 29.7 pg (27.9-34.1) 02/14/19 15:50 MCHC 31.4 g/dL (32.4-36.7) L 02/14/19 15:50 RDW 14.3 % (11.5-15.2) 02/14/19 15:50 Plt Count 138 10^3/uL (150-400) L 02/14/19 15:50 MPV 10.8 fL (8.7-11.7) 02/14/19 15:50 Neut % (Auto) 65.9 % (39.3-74.2) 02/14/19 15:50 Lymph % (Auto) 16.3 % (15.0-45.0) 02/14/19 15:50 [place] % (Auto) 13.7 % (4.5-13.0) H 02/14/19 15:50 Eos % (Auto) 3.3 % (0.6-7.6) 02/14/19 15:50 Baso % (Auto) 0.4 % (0.3-1.7) 02/14/19 15:50 Nucleat RBC Rel Count 0.0 % (0.0-0.2) 02/14/19 15:50 Absolute Neuts (auto) 4.81 10^3/uL (1.70-6.50) 02/14/19 15:50 Absolute Lymphs (auto) 1.19 10^3/uL (1.00-3.00) 02/14/19 15:50 Absolute Monos (auto) 1.00 10^3/uL (0.30-0.80) H 02/14/19 15:50 Absolute Eos (auto) 0.24 10^3/uL (0.03-0.40) 02/14/19 15:50 Absolute Basos (auto) 0.03 10^3/uL (0.02-0.10) 02/14/19 15:50 Absolute Nucleated RBC 0.00 10^3/uL (0-0.01) 02/14/19 15:50 Immature Gran % 0.4 % (0.0-1.1) 02/14/19 15:50 Immature Gran # 0.03 10^3/uL (0.00-0.10) 02/14/19 15:50 POC Sodium 143 mEq/L (135-145) 02/14/19 15:59 Sodium 133 mEq/L (135-145) L 02/14/19 15:50 POC Potassium 3.9 mEq/L (3.3-5.0) 02/14/19 15:59 Potassium 3.9 mEq/L (3.5-5.2) 02/14/19 15:50 POC Chloride 101 mEq/L (97-110) 02/14/19 15:59 Chloride 104 mEq/L (97-110) 02/14/19 15:50 Carbon Dioxide 24 mEq/l (22-31) 02/14/19 15:50 POC Total CO2 23 mEq/L (22-31) 02/14/19 15:59 Anion Gap 5 mEq/L (6-14) L 02/14/19 15:50 POC BUN 19 mg/dL (7-23) 02/14/19 15:59 BUN 21 mg/dL (7-23) 02/14/19 15:50 Creatinine 0.8 mg/dL (0.6-1.0) 02/14/19 15:50 POC Creatinine 0.8 mg/dL (0.6-1.0) 02/14/19 15:59 Estimated GFR > 60 02/14/19 15:50 Glucose 105 mg/dL (70-100) H 02/14/19 15:50 POC Glucose 111 mg/dL (70-100) H 02/14/19 15:59 Calcium 8.4 mg/dL (8.5-10.4) L 02/14/19 15:50 Iron 16.0 mcg/dL (37.0-170.0) L 02/14/19 15:52 TIBC 271 ug/dL (260-490) 02/14/19 15:52 Iron Saturation 6 % (20-55) L 02/14/19 15:52 POC Troponin I 0.02 ng/mL (0.00-0.08) 02/14/19 15:51 NT-Pro-B Natriuret Pep 1660 pg/mL (0-125) H 02/14/19 15:50 Assessment & Plan Assessment: CHF (congestive heart failure) (Acute) Hypoxemia (Acute) Plan: Chart reviewed, patient personally examined, case discussed with Kandace Villegas NP. Agree with plan outlined above. Please see separate note for additional details.
--- NOTE | 2019-02-14 18:45 | CPEKG ---
Test Reason : OPEN Blood Pressure : / mmHG Vent. Rate : 097 BPM Atrial Rate : 098 BPM P-R Int : 123 ms QRS Dur : 072 ms QT Int : 345 ms P-R-T Axes : 018 009 017 degrees QTc Int : 439 ms Sinus rhythm Low voltage, extremity leads Confirmed by Pacheco Clemons ([id number]) on 02/14/2019 6:45:01 PM Referred By: Pacheco Clemons Confirmed By:Pacheco Clemons
--- NOTE | 2019-02-14 20:12 | HOSPPROG ---
Hospitalist Progress Note Assessment/Plan: Case discussed with Kandace Villegas ARCADE TECHNICIAN. Agree with her findings with the following exceptions: Briefly, 73yo F who broke her left hip and had GILES 2 days ago presents with hypoxia. Discharged yesterday from [facility] where she had procedure. Didn't feel well today, checked pulse ox at home which registered in 70s so she came to ED. Here oxygen saturation of 81% on room air which improved to >90% with 2L. CTA chest was negative for PE but did show a small left pleural effusion, mild bilateral lower lobe atelectasis, mild cardiomegaly, and some peribronchial thickening. She was given a dose of 20mg IV lasix in the ED and is being admitted for further care. Exam: No distress. Lungs diminished at bases but no crackles or wheezes. RRR without murmur. Abdomen soft and nt. No leg edema or JVD. Labs: WBC 7.3, hgb 8.3, plts 138, Na 133, K 3.9, Cl 104, CO2 24, BUN 21, Cr 0.8 , glucose 108, calcium 8.4. ECG: NSR, normal axis, low voltage with some artifact but no obvious ischemic ST -T segment changes, early R wave progression CTA chest: see above in addition to moderate age-indeterminate T9 compression deformity Assessment/Plan: 73yo F here with hypoxia after L GILES. She does not have a PE. #Acute hypoxia: Suspect mild fluid overload after recent surgery in addition to atelectasis. S/p lasix in ED. Given mild cardiomegaly and early R wave progression on ECG, will check echo. Incentive spirometry. #Post-op anemia: Monitor. #Hyponatremia: Mild. #S/p L GILES: Continue PO pain management. PT/OT VTE ppx: She is on aspirin for this, will continue Dispo: Admit under observation Objective: Vital Signs Temp Pulse Resp BP Pulse Ox 37.7 C 88 20 108/57 L 93 02/14/19 18:38 02/14/19 18:38 02/14/19 18:38 02/14/19 18:38 02/14/19 18:38 02/13/19 02/14/19 02/15/19 05:59 05:59 05:59 Intake Total 15 Balance 15 ICD10 Worksheet Patient Problems: Problems Problem Status Onset CHF (congestive heart failure) Acute Hypoxemia Acute Primary localized osteoarthritis of left knee Acute
[2019-02-14] MEDS: DOCUSATE SODIUM 100 MG CAP PO SCH (22:13)
[2019-02-14] MEDS: ASPIRIN 325 MG TAB PO SCH (22:13)
[2019-02-14] MEDS: oxyCODONE IR 5 MG TAB PO PRN (22:20)
[2019-02-15 04:11] LABS: PLATELET COUNT 131 10^3/uL (150-400)
[2019-02-15] MEDS: DOCUSATE SODIUM 100 MG CAP PO SCH (08:40)
[2019-02-15] MEDS: ASPIRIN 325 MG TAB PO SCH (08:40)
[2019-02-15] MEDS: oxyCODONE IR 5 MG TAB PO PRN (08:41)
[2019-02-15] MEDS ORDERED: ESCITALOPRAM OXALATE 10 MG TAB PO SCH (09:00)
[2019-02-15] MEDS ORDERED: CHOLECALCIFEROL VIT D3 1,000 UNITS TAB PO SCH (09:00)
[2019-02-15] MEDS ORDERED: ASCORBIC ACID 500 MG TAB PO SCH (09:00)
--- NOTE | 2019-02-15 09:50 | HOSPPROG ---
Hospitalist Progress Note Assessment/Plan: Patient is new to my care. A 73yo F with left hip fx, s/p recent GILES presents with hypoxia. CTA negative for PE; showed small left pleural effusion, mild bilateral lower lobe atelectasis, mild cardiomegaly, and some peribronchial thickening. She was given a dose of 20mg IV lasix in the ED and is being admitted for further care. #Acute hypoxic resp failure (80s RA, SOB ) -volume overloaded with recent surgery. Echo pending #Post-op anemia: Monitor. #Hyponatremia: Mild. #S/p L GILES: Continue PO pain management. PT/OT Subjective: no SOB Objective: Vital Signs Temp Pulse Resp BP Pulse Ox 37.3 C 80 16 107/53 L 86 L 02/15/19 07:48 02/15/19 07:48 02/15/19 07:48 02/15/19 07:48 02/15/19 08:05 Laboratory Results 02/15/19 03:10 02/15/19 03:10 02/14/19 02/15/19 02/16/19 05:59 05:59 05:59 Intake Total 15 Output Total 200 Balance -185 - Time Spent With Patient Time Spent with Patient: greater than 35 minutes Time Spent with Patient: Greater than 35 minutes spent on this patients care, greater than 50% of time spent counseling, educating, and coordinating care regarding the above mentioned plan. - Physical Exam Constitutional: no apparent distress Eyes: PERRL Ears, Nose, Mouth, Throat: moist mucous membranes Cardiovascular: regular rate and rhythym Respiratory: no respiratory distress, No expiratory wheeze, No inspiratory crackles Gastrointestinal: normoactive bowel sounds Genitourinary: No chand in urethra Musculoskeletal: full muscle strength Neurologic: AAOx3, CN II-XII Intact ICD10 Worksheet Patient Problems: Problems Problem Status Onset CHF (congestive heart failure) Acute Hypoxemia Acute Primary localized osteoarthritis of left knee Acute
--- NOTE | 2019-02-15 10:33 | ECHO ---
[email or web address] [address] [address] Main: [phone] Echocardiography Examination Transthoracic Name: JAMES LAYTON MR#: Study Date: 02/15/2019 Study Time: 09:40 AM Date of : 1945 Age: 73 year(s) Height: 165.1 cm (65 in.) Weight: 72.58 kg (160 lb.) BSA: 1.8 m2 Gender: Female Examination: Echo Contrast: Image Quality: Adequate Rhythm: Heart Rate: BP: 107 mmHg/53 mmHg Indication: Eval ventricular function, wall motion Procedure Staff Referring Physician: Wheel Mill Operator: Tania Mart RDCS Reading Physician: Frank Renee MD Requesting Provider: Ordering Physician: Joe Smiley Indication: Eval ventricular function, wall motion Measurements Chambers AV/MV Label Value Normal Value Label Value Normal Value IVSd, 2D 1.2 cm (0.6cm - 1.1cm) AV PGmax 10 mmHg LVDd, 2D 4.1 cm (3.9cm - 5.3cm) AV PGmean 6 mmHg LVDs, 2D 2.8 cm (2.1cm - 4cm) AV Vmax 1.61 m/s LVEF, 2D 60 % (54% - 74%) AMAN D (continuity eq. 1.6 cm2 LVOT PGmean 3 mmHg VTI) LVOT Vmean 0.81 m/s MV A Vmax 0.79 m/s LVOTd 1.8 cm (1.8cm - 2cm) MV DT 190 ms LVPWd, 2D 1.1 cm MV E' lateral 0.08 m/s LA Volume, BP 57 ml (22ml - 52ml) MV E' mean 0.08 m/s LADs, 2D 3.4 cm (2.7cm - 3.8cm) MV E' septal 0.08 m/s LAESV index, BP 31.7 ml/m2 MV E Vmax 0.85 m/s RA Area 15.2 cm2 MV E/A 1.08 Additional Vessels MV E/E' lateral 10.6 Label Value Normal Value MV E/E' mean 10.62 AoAsc 2.5 cm MV E/E' septal 10.9 (0.45 - 1.25) AoRoot, 2D 2.6 cm (1.4cm - 2.6cm) MV PHT 0.06 s IVC 2.3 cm (1.2cm - 2.3cm) MV PHT 55 ms MVA PHT 4 cm2 TV/PV Patient: JAMES LAYTON MRN: Study Date: 02/15/2019 Page 1 of 3 09:40 AM Label Value Normal Value RA Pressure 10 mmHg RVSP 51 mmHg TR Pmax 41 mmHg TR Vmax 3.19 m/s PV PGmax 2 mmHg PV Vmax, Caliper 0.79 m/s (0.6m/s - 0.9m/s) Findings Patient supine due to left side pain. Left Ventricle: CONCLUSIONS: 1)Normal LV size and systolic function with a LVEF of 65% and normal wall motions. 2)Mild concentric LVH noted. 3)Normal RV size and RV systolic function. 4)Mild left atrial enlargement noted. 5)Aortic valve sclerosis (mild) with no . Mild AI noted. 6)Mild to moderate MR without MV prolapse. 7)Moderate TR with estimated mild-moderate pulmonary HTN (PAS = 51mmHg).There is mild concentric left ventricular hypertrophy. There are no regional wall motion abnormalities. Cannot determine LAP and Diastolic Dysfunction Grade. Right Ventricle: Normal size right ventricle. Right ventricular systolic function is normal. Left Atrium: The left atrium is mildly dilated. Right Atrium: The right atrium is normal in size. Mitral Valve: Mild to moderate mitral regurgitation. No mitral valve stenosis. There is a mild mitral valve prolapse. Aortic Valve: Aortic leaflets are structurally normal. Mild aortic regurgitation is present. There is no aortic stenosis. Aortic leaflets exhibit mild calcification. Tricuspid Valve: Tricuspid valve leaflets are structurally normal. Moderate tricuspid regurgitation. No tricuspid valve stenosis. Right Ventricular systolic pressure is measured at 51 mmHg. Pulmonary artery pressure is mildly to moderately increased. Pulmonic Valve: Pulmonic leaflets are structurally normal. Mild pulmonic valve regurgitation is present. Aorta: The aortic root size in 2D measures 2.6 cm. The ascending aorta measures 2.5 cm. Aorta Measurements AoRoot, 2D is 2.6 cm. IVC: The inferior vena cava is mildly dilated. Pericardium: No pericardial effusion. Exam Details Procedure Ordered: Echo Procedure Status: Routine study Image Quality: Adequate Facility Location: Cardiac Echo 1 Patient: JAMES LAYTON MRN: Study Date: 02/15/2019 Page 2 of 3 09:40 AM (No Signature Object) Patient: JAMES LAYTON MRN: Study Date: 02/15/2019 Page 3 of 3 09:40 AM [id number]
--- NOTE | 2019-02-15 11:22 | ASMTCMCOM ---
CM Note CM Note Notes: Chart reviewed. Pt admitted for hypoxia r/t perioperative fluid overload. On Sunday 02/11, pt had a fall while waiting in line at a ski lift and ended up fracturing her left hip. Pt went to [facility] and had a total hip arthroplasty on 02/12; pt was discharged from [facility] on 02/13. Pt presented to the ED yesterday with "not feeling right" and hypoxia w/a RA SpO2 at 81%. CTA negative for PE. PT/OT recc Home w/family, walker & possibly other DME. Not sure if pt will need home O2 set up. Anticipate pt to DC home w/. Date Signed: 02/15/2019 11:21 AM Electronically Signed By:Lilly Balderrama RN
--- NOTE | 2019-02-15 12:09 | PDHOMEO2F ---
Home Oxygen Face to Face Home Orders: I certify that a physician or a nurse practitioner or physician's journeyman operator assistant has had a [id number] encounter with this patient on the date of this order due to the diagnosis listed, which relates to the primary reason the patient requires home oxygen. Alternative treatments have been tried, or considered, and deemed ineffective. It is anticipated that supplemental oxygen will result in improvement with treatment. Home oxygen qualifying diagnosis: Hypoxia SpO2 on room air (%): 82 Frequency of home oxygen needed: with activity Home oxygen liters per minute: 1 Home oxygen delivery device: nasal cannula Concentrator: Yes E-tanks for mobility and back up: Yes If ordering portable O2, is the patient mobile in the home?: Yes I certify that, based on these findings, the home oxygen is medically necessary for this patient for the following length of time. Length of time home oxygen needed: 99 years
[2019-02-15 12:58] VITALS: BP 85/48
--- NOTE | 2019-02-15 16:30 | GDS ---
[f rep st] DISCHARGE SUMMARY DISCHARGE DIAGNOSES: 1. Acute hypoxic respiratory failure. 2. Postop anemia. 3. Mild hyponatremia. 4. Status post recent left total hip arthroplasty. 5. Moderate pulmonary hypertension. HISTORY OF PRESENT ILLNESS: A pleasant 73-year-old female presented to [facility] with hypoxia after discharge from [facility] . On Sunday, she fell in line at the ski lift, fractured her left hip. She had a GILES on Sunday, and was discharged home the day after. She did not feel right at home, with some mild nausea. Checked her oxygen and her saturations were in the 70s. Denied shortness of breath, vomiting, lightheadedness. In the ER, room air sat was 81%. CTA was negative for PE, but evidence of small left pleural effusion with atelectasis. HOSPITAL COURSE BY PROBLEM: 1. Acute hypoxic respiratory failure: hypoxic to the 80s. From volume overload and atelectasis with recent surgery. CTA negative for PE. Echo shows normal EF, but moderate pulmonary hypertension. mild-mod . DC on 1L of oxygen. Follow up with her PCP, Dr. Avelar. 2. Status post left GILES: pain controlled. ASA BID for DVT prophylaxis. 3. Postop anemia. H/H stable. She is asymptomatic. 4. Sent home on incentive spirometry. 5. Moderate pulmonary hypertension/mod MR Recommend outpatient cardiology followup. DISPOSITION: Patient is stable for discharge home. NEW MEDICATIONS: Oxygen. FOLLOWUP: PCP, Dr. Avelar. Rec Cardiology referral Time spent on discharge greater than 30 minutes, coordinating and answering questions bedside. /[id number]
== END 2019-02-15 16:06 | disposition home or self-care (01) ==
LOC: F2W 18:10
PROVIDERS: ADMIT Internal Medicine; ATTEND Internal Medicine
DX: J96.01 Acute respiratory failure with hypoxia (principal); D62 Acute posthemorrhagic anemia; I27.20 Pulmonary hypertension, unspecified; I50.9 Heart failure, unspecified; E87.1 Hypo-osmolality and hyponatremia; J90 Pleural effusion, not elsewhere classified; Z96.642 Presence of left artificial hip joint
CPT/HCPCS: 71275; 93005; 93306; 96374; 97116; 97161; 97165; 99285; G0378; J1940; Q9967; 82435-PO; 82565-PO; 82947-PO; 84132-PO; 84295-PO; 84484-ER; 84520-PO; 85014-ER

== ENCOUNTER → 2019-03-06 | Outpatient (CLI) | payer OTHER | LOC: BMCIMAGING 13:48 | PROVIDERS: ATTEND Internal Medicine | DX: Z13.820 Encounter for screening for osteoporosis (principal); M85.89 Other specified disorders of bone density and structure, multiple sites; Z78.0 Asymptomatic menopausal state; Z87.81 Personal history of (healed) traumatic fracture ==

== ENCOUNTER → 2019-04-09 | Outpatient (CLI) | payer OTHER | LOC: BMCIMAGING 12:11 | PROVIDERS: ATTEND Internal Medicine Endocrinology, Diabetes & Metabolism | DX: M81.0 Age-related osteoporosis without current pathological fracture (principal); M50.321 Other cervical disc degeneration at C4-C5 level ==